=== PATIENT | male | born 1935 | race African-American/Black ===

== ENCOUNTER 2019-03-28 16:33 | Emergency (ER) | payer MEDICAID, MEDICARE ==
[~2019-03-28] VITALS: Ht 190.5 cm; Wt 89.0 kg
[2019-03-28 21:19] VITALS: BP 129/77
== END 2019-03-28 23:24 | disposition home or self-care (01) ==
LOC: ER 16:33
DX: R07.89 Other chest pain (principal); I10 Essential (primary) hypertension; K21.9 Gastro-esophageal reflux disease without esophagitis
CPT/HCPCS: 36415; 84484; 93005; 99284

== ENCOUNTER 2021-07-10 11:05 | Emergency (ER) | payer MEDICARE, MEDICAID ==
[~2021-07-10] VITALS: Ht 182.9 cm; Wt 88.2 kg
[2021-07-10] MEDS ORDERED: RIVA20TA PO (16:29)
[2021-07-10] MEDS ORDERED: XAR15 MT (16:29)
[2021-07-10 16:46] VITALS: BP 150/77
[2021-07-10] MEDS ORDERED: RIVAROXABAN 15 MG TABLET PO ONE (17:00)
== END 2021-07-10 16:52 | disposition home or self-care (01) ==
LOC: ER 11:05
DX: I82.412 Acute embolism and thrombosis of left femoral vein (principal)
CPT/HCPCS: 93971; 99284